=== PATIENT | male | born 1970 | race American Indian/Alaskan Native ===

== ENCOUNTER 2017-10-23 18:48 | Emergency (ER) | payer OTHER ==
[~2017-10-23] VITALS: Ht 177.8 cm; Wt 104.3 kg
[~2017-10-23 18:48] MED LIST: IBUP800 PO; Percocet 5-3251 EACH PO
[2017-10-23] MEDS ORDERED: Percocet 5-3251 EACH PO (20:40)
[2017-10-23] MEDS ORDERED: Crutch1 EACH MISC (20:44)
== END 2017-10-23 20:50 | disposition home or self-care (01) ==
LOC: ER 18:48
DX: S86.112A Strain of other muscle(s) and tendon(s) of posterior muscle group at lower leg level, left leg, initial encounter (principal); X58.XXXA Exposure to other specified factors, initial encounter; F17.200 Nicotine dependence, unspecified, uncomplicated
CPT/HCPCS: 29515; 76882; 99284

== ENCOUNTER 2018-10-10 21:40 | Emergency (ER) | payer OTHER ==
[~2018-10-10] VITALS: Ht 177.8 cm; Wt 104.3 kg
[~2018-10-10 21:40] MED LIST changes: +Crutch1 EACH MISC
== END 2018-10-11 02:11 | disposition home or self-care (01) ==
LOC: ER 21:40
DX: S30.0XXA Contusion of lower back and pelvis, initial encounter (principal); X50.9XXA Other and unspecified overexertion or strenuous movements or postures, initial encounter; F17.200 Nicotine dependence, unspecified, uncomplicated
CPT/HCPCS: 72100; 96372; 99283-25; J1170; J1885

== ENCOUNTER 2021-11-26 01:24 | Emergency (ER) | payer SELFPAY ==
[~2021-11-26] VITALS: Ht 177.8 cm; Wt 95.2 kg
[2021-11-26 01:54] LABS: BASOPHILS ABSOLUTE AUTO 0.05 K/mm3 (0.00-0.23); BASOPHILS PERCENT AUTO 1 % (0-2); EOSINOPHILS ABSOLUTE AUTO 0.14 K/mm3 (0.00-0.68); EOSINOPHILS PERCENT AUTO 1 % (0-6); Hematocrit 38.9 % (37.0-53.0); Hemoglobin 12.6 g/dL (13.5-17.5); IMMATURE GRAN ABSOLUTE AUTO 0.09 K/mm3 (0.00-0.10); IMMATURE GRAN PERCENT AUTO 1 % (0-1); LYMPHOCYTES ABSOLUTE AUTO 1.56 K/mm3 (0.84-5.20); LYMPHOCYTES PERCENT AUTO 15 % (21-46); MONOCYTES ABSOLUTE AUTO 0.42 K/mm3 (0.16-1.47); MONOCYTES PERCENT AUTO 4 % (4-13); Mean Corpuscular HGB 30.7 pg (26.0-34.0); Mean Corpuscular HGB Conc 32.4 g/dL (31.5-36.5); Mean Corpuscular Volume 95 fL (80-100); Mean Platelet Volume 9.5 fL (9.1-12.4); NEUTROPHILS ABSOLUTE AUTO 8.05 K/mm3 (1.96-9.15); NEUTROPHILS PERCENT AUTO 78 % (41-73); Platelet Count 289 K/mm3 (150-400); RDW Coefficient Variation 13.1 % (11.7-14.2); RDW Standard Deviation 45.8 fL (35.1-46.3); White Blood Cell Count 10.31 K/mm3 (4.00-11.30)
[2021-11-26 02:01] LABS: Alanine Aminotransfer (ALT/SGP 28 U/L (12-78); Albumin, Blood 3.6 g/dL (3.4-5.0); Alk Phos 99 U/L (50-136); Anion Gap 4 mmol/L (6-16); Aspartate Aminotrans (AST/SGOT 14 U/L (12-37); Bilirubin, Total 0.3 mg/dL (0.1-1.0); Blood Urea Nitrogen 14 mg/dL (8-24); Bun/Creatinine Ratio 16.3 (12.0-20.0); CO2, Blood 30 mmol/L (21-32); Calcium, Blood 8.4 mg/dL (8.5-10.1); Chloride, Blood 111 mmol/L (98-108); Creatinine, Blood 0.86 mg/dL (0.60-1.20); Ethanol (Alcohol), Blood, Med <3 mg/dL; Globulin, Blood 3.7 g/dL (2.2-4.0); Glomerular Filtration Rate >60 (60-); Glucose, Blood 123 mg/dL (70-99); Potassium, Blood 3.8 mmol/L (3.5-5.5); Sodium, Blood 145 mmol/L (136-145); Total Protein, Blood 7.3 g/dL (6.4-8.2)
[2021-11-26 04:23] LABS: Source, Urine Clean Catch
[2021-11-26 04:26] LABS: Bilirubin, Urine Neg (Neg); Blood, Urine 1+ (Neg); Glucose Qualitative, Urine Neg (Neg); Ketones, Urine Neg (Neg); Leukocyte Esterase, Urine Neg (Neg); Nitrite, Urine Neg (Neg); Protein, Urine Neg (Neg); Urobilinogen, Urine NORM (Normal)
[2021-11-26 04:31] LABS: Appearance, Urine Clear (Clear); Color, Urine Yellow (P-Yellow)
[2021-11-26 04:42] LABS: U Amphetamine Screen DETECTED; U Barbituate Screen Not Detected; U Benzodiazapine Screen Not Detected; U Buprenorphine Screen Not Detected; U Cannabinoids Screen Not Detected; U Cocaine Screen Not Detected; U Methadone Screen Not Detected; U Methamphetamine Screen DETECTED; U Opiates Screen DETECTED; U Oxycodone Screen Not Detected; U Phencyclidine Screen Not Detected; U Propoxyphene Screen Not Detected
[2021-11-26 04:45] LABS: Bacteria Not Seen /hpf; Red Blood Cells, Urine 0-2 /hpf (0-2); Squamous Epithelial Cells Few /hpf (Few); White Blood Cells, Urine Rare /hpf (0-5)
[2021-11-26] MEDS ORDERED: Roxicodone5 MG PO (07:07)
[2021-11-26] MEDS ORDERED: IBUP400 PO (14:28)
[2021-11-26] MEDS ORDERED: ACET500 PO (14:28)
[2021-11-26] MEDS ORDERED: OXYC5 PO (14:28)
== END 2021-11-26 15:00 | disposition home or self-care (01) ==
LOC: ER 01:24
PROVIDERS: Emergency Medicine
DX: S52.502A Unspecified fracture of the lower end of left radius, initial encounter for closed fracture (principal); S42.031A Displaced fracture of lateral end of right clavicle, initial encounter for closed fracture; V29.9XXA Motorcycle rider (driver) (passenger) injured in unspecified traffic accident, initial encounter; F17.200 Nicotine dependence, unspecified, uncomplicated
CPT/HCPCS: 25605; 29105; 70450; 71045; 71260; 72125; 73030; 73080; 73100; 73110; 74177; 76000; 80053; 81001; 83690; 85025; 93005; 93010; 96374; 96375; 96376; 99285-25; G0480; J1170; J1885; J2704; J7030; Q9967

== ENCOUNTER 2024-09-07 07:12 | Emergency (ER) | payer OTHER ==
[~2024-09-07] VITALS: Ht 177.8 cm; Wt 108.9 kg
[~2024-09-07 07:12] MED LIST changes: +ACET500 PO; +IBUP400 PO; +OXYC5 PO; +Roxicodone5 MG PO
[2024-09-07 08:42] VITALS: BP 174/94
[2024-09-07] MEDS ORDERED: CLIN300 PO (08:48)
== END 2024-09-07 09:32 | disposition home or self-care (01) ==
LOC: ER 07:12
DX: L02.415 Cutaneous abscess of right lower limb (principal); Z79.1 Long term (current) use of non-steroidal anti-inflammatories (NSAID); Z59.89 Other problems related to housing and economic circumstances
CPT/HCPCS: 99282

== ENCOUNTER 2024-09-10 20:23 | Inpatient (IN) | payer OTHER ==
[~2024-09-10] VITALS: Ht 177.8 cm; Wt 113.4 kg
[~2024-09-10 20:23] MED LIST changes: +CLIN300 PO
[2024-09-10 20:46] LABS: BASOPHILS ABSOLUTE AUTO 0.06 K/mm3 (0.00-0.23); BASOPHILS PERCENT AUTO 1 % (0-2); EOSINOPHILS PERCENT AUTO 1 % (0-6); Hematocrit 23.4 % (37.0-53.0); Hemoglobin 8.2 g/dL (13.5-17.5); IMMATURE GRAN ABSOLUTE AUTO 0.23 K/mm3 (0.00-0.10); IMMATURE GRAN PERCENT AUTO 2 % (0-1); LYMPHOCYTES ABSOLUTE AUTO 3.11 K/mm3 (0.84-5.20); LYMPHOCYTES PERCENT AUTO 26 % (21-46); MONOCYTES ABSOLUTE AUTO 0.55 K/mm3 (0.16-1.47); MONOCYTES PERCENT AUTO 5 % (4-13); Mean Corpuscular HGB 32.2 pg (26.0-34.0); Mean Corpuscular Volume 92 fL (80-100); Mean Platelet Volume 8.8 fL (9.1-12.4); NEUTROPHILS ABSOLUTE AUTO 7.95 K/mm3 (1.96-9.15); NEUTROPHILS PERCENT AUTO 66 % (41-73); Platelet Count 449 K/mm3 (150-400); RDW Standard Deviation 42.9 fL (35.1-46.3); Red Blood Cell Count 2.55 M/mm3 (4.30-5.90)
[2024-09-10 21:08] LABS: Albumin, Blood 2.8 g/dL (3.4-5.0); Albumin/Globulin Ratio 0.8 (0.8-1.8); Bilirubin, Total 0.1 mg/dL (0.1-1.0); Bun/Creatinine Ratio 46.4 (12.0-20.0); Creatinine, Blood 0.65 mg/dL (0.60-1.20); Globulin, Blood 3.5 g/dL (2.2-4.0); Potassium, Blood 4.1 mmol/L (3.5-5.5); Total Protein, Blood 6.3 g/dL (6.4-8.2)
[2024-09-11] VITALS (7 sets, daily range): BP systolic 103–131; BP diastolic 55–68
[2024-09-11] MEDS ORDERED: NS 1,000 ML IV SCH (01:30)
[2024-09-11] MEDS ORDERED: Clindamycin 600mg in D5W 50 ML IV ONE (02:10)
[2024-09-11 02:14] LABS: Hemoglobin 7.3 g/dL (13.5-17.5)
[2024-09-11] MEDS ORDERED: NS 1,000 ML IV ONE (02:20)
[2024-09-11] MEDS ORDERED: FLU VACC TS2024-25(6MOS UP)/PF 45 MCG/0.5 ML SYRINGE IM ONE (02:20)
[2024-09-11] MEDS ORDERED: Ondansetron HCl 2 MG / ML 2ML Vial IV PRN (02:20)
[2024-09-11] MEDS ORDERED: Pantoprazole Sodium 40 MG in NS 50 ML IV SCH (02:30)
[2024-09-11 03:15] LABS: International Normalized Ratio 0.99; Prothrombin Time Results 10.6 Sec (9.7-11.5)
[2024-09-11] MEDS ORDERED: CeFAZolin Sodium 1,000 MG in NS 50 ML IV SCH ×2 (04:25→20:00)
[2024-09-11 05:22] LABS: BASOPHILS ABSOLUTE AUTO 0.05 K/mm3 (0.00-0.23); BASOPHILS PERCENT AUTO 1 % (0-2); EOSINOPHILS ABSOLUTE AUTO 0.08 K/mm3 (0.00-0.68); EOSINOPHILS PERCENT AUTO 1 % (0-6); Hemoglobin 7.3 g/dL (13.5-17.5); IMMATURE GRAN ABSOLUTE AUTO 0.26 K/mm3 (0.00-0.10); IMMATURE GRAN PERCENT AUTO 2 % (0-1); LYMPHOCYTES ABSOLUTE AUTO 2.65 K/mm3 (0.84-5.20); LYMPHOCYTES PERCENT AUTO 24 % (21-46); MONOCYTES ABSOLUTE AUTO 0.53 K/mm3 (0.16-1.47); MONOCYTES PERCENT AUTO 5 % (4-13); Mean Corpuscular HGB Conc 34.8 g/dL (31.5-36.5); Mean Corpuscular Volume 92 fL (80-100); Mean Platelet Volume 8.8 fL (9.1-12.4); NEUTROPHILS ABSOLUTE AUTO 7.44 K/mm3 (1.96-9.15); NEUTROPHILS PERCENT AUTO 68 % (41-73); Platelet Count 381 K/mm3 (150-400); RDW Coefficient Variation 13.3 % (11.7-14.2); RDW Standard Deviation 43.5 fL (35.1-46.3); Red Blood Cell Count 2.28 M/mm3 (4.30-5.90); White Blood Cell Count 11.01 K/mm3 (4.00-11.30)
[2024-09-11 05:45] LABS: Albumin, Blood 2.6 g/dL (3.4-5.0); Albumin/Globulin Ratio 0.8 (0.8-1.8); Bilirubin, Total 0.2 mg/dL (0.1-1.0); Calcium, Blood 7.9 mg/dL (8.5-10.1); Creatinine, Blood 0.65 mg/dL (0.60-1.20); Globulin, Blood 3.3 g/dL (2.2-4.0); Potassium, Blood 4.2 mmol/L (3.5-5.5); Total Protein, Blood 5.9 g/dL (6.4-8.2)
[2024-09-11 13:16] LABS: IMMATURE RETIC FRACTION 38.1 % (2.3-16.0); RETIC HGB EQUIVALENT 36.9 pg (28.20-36.60); RETICULOCYTE ABSOLUTE 0.0682 M/mm3 (0.0200-0.1100); RETICULOCYTE COUNT PERCENT 2.98 % (0.50-2.50)
[2024-09-11 14:16] LABS: Hematocrit 20.3 % (37.0-53.0); Hemoglobin 6.8 g/dL (13.5-17.5)
[2024-09-11] MEDS ORDERED: Peg/Electrolytes 4,000 ML BTL PO ONE (14:20)
[2024-09-11 14:21] LABS: Percent Saturation 42.4 % (20.0-50.0)
[2024-09-11] MEDS ORDERED: NS 250 ML IV PRN (15:45)
[2024-09-11] MEDS ORDERED: Pantoprazole Sodium 40 MG Injection IV SCH (16:30)
[2024-09-11] MEDS ORDERED: ATOR40TA PO (16:32)
[2024-09-11] MEDS ORDERED: ERGO50000 PO (16:33)
[2024-09-11] MEDS ORDERED: GABA100 PO (16:33)
[2024-09-11] MEDS ORDERED: OMEP20ER PO (16:33)
[2024-09-11] MEDS ORDERED: Prinivil10 MG PO (16:33)
[2024-09-11] MEDS ORDERED: IBUP800 PO (16:34)
--- NOTE | 2024-09-11 17:49 | NUR ---
PT ADMITTED FROM THE ER FOR MELENA, PT ALERT AND ORIENTED, ABLE TO TRANSFER SELF FROM THE GURNEY TO THE BED, PT ORIENTED TO THE ROOM AND CALL SYSTEM, PT DENIES ANY PAIN OR SOB, BOWEL PREP STARTED, DR MINER WAS IN TO SEE THE PT AND HE WILL BE GETTING UPPER AND LOWER SCOPES TOMORROW, PT IS GETTING ONE UNIT OF PRBC'S AT THIS TIME, WILL CONT TO MONITOR
--- NOTE | 2024-09-11 19:20 | NUR ---
RECEIVED REPORT FROM BEAR RN. PT LYING IN BED WITH EYES CLOSED. RESP E/U ON RA. UNIT OF PRBC'S INFUSING WITHOUT DIFFICULTY. PT REQUESTING TYLENOL FOR RASHID. WILL CALL FOR ORDER. NO OTHER NEEDS AT THIS TIME. WILL CONTINUE TO PROVIDE CARE T/O SHIFT. CALL LT IN REACH.
[2024-09-11] MEDS ORDERED: Acetaminophen 500 MG Tab PO PRN (19:50)
[2024-09-11 21:10] LABS: Hematocrit 20.5 % (37.0-53.0); Hemoglobin 6.9 g/dL (13.5-17.5)
--- NOTE | 2024-09-11 21:50 | NUR ---
PT UP SITTING ON SIDE OF BED DRINKING THE GOLYTELY BOWEL PREP. MEDICATED PT WITH 4MG IV ZOFRAN FOR NAUSEA, PT STATES THE TASTE OF THE BOWEL PREP MAKES HIM NAUSEOUS. ENCOURAGED PT TO CONTINUES TO DRINK THE PREP. CALL LT IN REACH.
--- NOTE | 2024-09-11 22:17 | NUR ---
ENCOURAGED PT TO DRINK MORE OF BOWEL PREP. CALL LT IN REACH.
[2024-09-12] VITALS (11 sets, daily range): BP systolic 108–129; BP diastolic 54–95
--- NOTE | 2024-09-12 00:20 | NUR ---
PT CONTINUES TO DRINK THE BOWEL PREP. NOTED BLACK LIQUID STOOLS. CALL LT IN REACH.
--- NOTE | 2024-09-12 00:30 | NUR ---
NOTIFIED HOSPITALIST PT'S HEMOGLOBIN 6.9 AFTER 1 UNIT PRBC AND PT HAS HAD TWO BLACK LIQUID STOOLS SINCE BLOOD INFUSION. WILL NOTIFY HOSPITALIST AFTER NEXT H&H CHECK AT 5AM. PT NOT COMPLAINING OF DIZZINESS WHEN UP TO THE BATHROOM. WILL CONTINUE TO PROVIDE CARE. CALL LT IN REACH.
--- NOTE | 2024-09-12 02:05 | NUR ---
PT DECLINING LAST PART OF GOLYTELY, STATES HIS BOTTOM IS GETTING SORE. PT IS RESTING AT TIME. WILL CONTINUE TO ENCOURAGE PT TO FINISH HIS BOWEL PREP. CALL LT IN REACH.
--- NOTE | 2024-09-12 03:52 | NUR ---
SHIFT SUMMARY: A/O X 4. STATES NEEDS APPROPRIATELY. NO COMPLAINTS OF DIZZINESS. UP TO THE BATHROOM INDEP THROUGH SHIFT. STILL TRYING TO FINISH THE BOWEL PREP. HAD TWO LIQUID, BLACK STOOLS. RECEIVED 1 UNIT PRBC YESTERDAY FOR HGB OF 6.8, LAB DRAW RESULT AFTER BLOOD INFUSION HGB 6.9. HOSPITALIST NOTIFIED OF RESULTS AND OF THE DARK LIQUID STOOLS, PER , AWAIT FOR MORNING LAB RESULTS. PLAN IS FOR A LOWER SCOPE TODAY. SR AT 89 WITH BBB ON TELE. NO ACUTE CHANGES. WILL CONTINUE TO PROVIDE CARE UNTIL SHIFT REPORT TO ONCOMING NURSE. CALL LT IN REACH.
--- NOTE | 2024-09-12 03:52 | NUR ---
PT ENCOURAGED TO FINISH GOLYTELY, SITTING ON SIDE OF BED DRINKING BOWEL PREP. CALL LT IN REACH.
[2024-09-12 06:17] LABS: BASOPHILS ABSOLUTE AUTO 0.03 K/mm3 (0.00-0.23); BASOPHILS PERCENT AUTO 0 % (0-2); EOSINOPHILS ABSOLUTE AUTO 0.09 K/mm3 (0.00-0.68); EOSINOPHILS PERCENT AUTO 1 % (0-6); Hematocrit 19.5 % (37.0-53.0); Hemoglobin 6.6 g/dL (13.5-17.5); IMMATURE GRAN ABSOLUTE AUTO 0.12 K/mm3 (0.00-0.10); IMMATURE GRAN PERCENT AUTO 2 % (0-1); LYMPHOCYTES ABSOLUTE AUTO 1.98 K/mm3 (0.84-5.20); LYMPHOCYTES PERCENT AUTO 25 % (21-46); MONOCYTES ABSOLUTE AUTO 0.46 K/mm3 (0.16-1.47); MONOCYTES PERCENT AUTO 6 % (4-13); Mean Corpuscular HGB Conc 33.8 g/dL (31.5-36.5); Mean Corpuscular Volume 92 fL (80-100); Mean Platelet Volume 8.8 fL (9.1-12.4); NEUTROPHILS ABSOLUTE AUTO 5.14 K/mm3 (1.96-9.15); NEUTROPHILS PERCENT AUTO 66 % (41-73); Platelet Count 348 K/mm3 (150-400); RDW Coefficient Variation 13.7 % (11.7-14.2); Red Blood Cell Count 2.13 M/mm3 (4.30-5.90); White Blood Cell Count 7.82 K/mm3 (4.00-11.30)
[2024-09-12 06:58] LABS: Bun/Creatinine Ratio 14.4 (12.0-20.0); Calcium, Blood 7.3 mg/dL (8.5-10.1); Creatinine, Blood 0.63 mg/dL (0.60-1.20); Potassium, Blood 3.8 mmol/L (3.5-5.5)
[2024-09-12 08:31] LABS: Hematocrit 20.3 % (37.0-53.0); Hemoglobin 6.9 g/dL (13.5-17.5)
[2024-09-12] MEDS ORDERED: Acetaminophen 500 MG Tab PO PRN (08:40)
[2024-09-12 08:52] LABS: International Normalized Ratio 1.03
[2024-09-12] MEDS ORDERED: propofoL 50 ML IV ONE (10:51)
[2024-09-12] MEDS ORDERED: Lactated Ringer's 1,000 ML IV SCH (11:00)
[2024-09-12] MEDS ORDERED: Lidocaine HCl 4% 5 ML SDA ONE (11:06)
[2024-09-12] MEDS ORDERED: Phenylephrine HCl 100 MCG/ML-NS 10MLSYR (1MG/10ML) ONE (13:13)
[2024-09-12 14:48] LABS: Hematocrit 23.1 % (37.0-53.0)
[2024-09-12] MEDS ORDERED: ATOR40TA PO (17:05)
[2024-09-12] MEDS ORDERED: Vitamin D1000 UNI1 PO (17:05)
[2024-09-12] MEDS ORDERED: GABA100 PO (17:06)
[2024-09-12] MEDS ORDERED: OMEP20ER PO (17:06)
[2024-09-12] MEDS ORDERED: Prinivil10 MG PO (17:06)
--- NOTE | 2024-09-12 17:58 | NUR ---
PT DISCHARGED AT APPROX 1715. PT PIVS REMOVED AND PT EDUCATED ON NEED TO FOLLOW UP WITH PCP AND TAKE MEDS PRESCRIBED. PT HAD NO QUESTIONS OR CONCERNS AT TIME OF DISCAHRGE.
== END 2024-09-12 17:14 | disposition hospice, home (50) | DRG 394 ==
LOC: ER 20:23 → ERHOLD 20:24 → MEDS 09-11 13:14
PROVIDERS: Emergency Medicine; Hospitalist; Student in an Organized Health Care Education/Training Program; Surgery; ADMIT Internal Medicine
PROC: 0DBN8ZZ Excision of Sigmoid Colon, Via Natural or Artificial Opening Endoscopic (ICD-10-PCS; principal; 2024-09-12 13:00)
PROC: 0DJ08ZZ Inspection of Upper Intestinal Tract, Via Natural or Artificial Opening Endoscopic (ICD-10-PCS; 2024-09-12 13:00)
DX: K63.5 Polyp of colon (principal); K92.1 Melena; L03.115 Cellulitis of right lower limb; F17.210 Nicotine dependence, cigarettes, uncomplicated; E66.9 Obesity, unspecified; Z68.35 Body mass index [BMI] 35.0-35.9, adult; E86.0 Dehydration; D64.9 Anemia, unspecified
CPT/HCPCS: 36415; 36430; 76882; 80048; 80053; 82272; 82607; 82728; 82746; 83540; 83550; 83880; 85014; 85018; 85025; 85045; 85610; 85730; 86850; 86900; 86901; 86923; 88305; 93005; 93010; 93971; 96361; 96365; 96366; 96367; 96368; 96376; 99285-25; A9270; G0378; J0690; J2003; J2371; J2405; J2470; J2704; J7030; J7120; P9016

== ENCOUNTER 2024-10-12 11:30 | Emergency (ER) | payer OTHER ==
[~2024-10-12] VITALS: Ht 167.6 cm; Wt 113.4 kg
[~2024-10-12 11:30] MED LIST changes: +ATOR40TA PO; +ERGO50000 PO; +GABA100 PO; +OMEP20ER PO; +Prinivil10 MG PO; +Vitamin D1000 UNI1 PO
[2024-10-12 11:41] VITALS: BP 142/84
[2024-10-12 12:13] LABS: BASOPHILS ABSOLUTE AUTO 0.04 K/mm3 (0.00-0.23); BASOPHILS PERCENT AUTO 1 % (0-2); EOSINOPHILS ABSOLUTE AUTO 0.03 K/mm3 (0.00-0.68); EOSINOPHILS PERCENT AUTO 1 % (0-6); Hematocrit 32.4 % (37.0-53.0); Hemoglobin 11.1 g/dL (13.5-17.5); IMMATURE GRAN ABSOLUTE AUTO 0.02 K/mm3 (0.00-0.10); IMMATURE GRAN PERCENT AUTO 0 % (0-1); LYMPHOCYTES ABSOLUTE AUTO 0.72 K/mm3 (0.84-5.20); LYMPHOCYTES PERCENT AUTO 11 % (21-46); MONOCYTES ABSOLUTE AUTO 0.52 K/mm3 (0.16-1.47); MONOCYTES PERCENT AUTO 8 % (4-13); Mean Corpuscular HGB 30.4 pg (26.0-34.0); Mean Corpuscular HGB Conc 34.3 g/dL (31.5-36.5); Mean Corpuscular Volume 89 fL (80-100); Mean Platelet Volume 8.4 fL (9.1-12.4); NEUTROPHILS ABSOLUTE AUTO 5.02 K/mm3 (1.96-9.15); NEUTROPHILS PERCENT AUTO 79 % (41-73); Platelet Count 441 K/mm3 (150-400); RDW Standard Deviation 42.3 fL (35.1-46.3); Red Blood Cell Count 3.65 M/mm3 (4.30-5.90); White Blood Cell Count 6.35 K/mm3 (4.00-11.30)
[2024-10-12 12:34] LABS: Albumin/Globulin Ratio 1.1 (0.8-1.8); Bilirubin, Total 0.8 mg/dL (0.1-1.0); Bun/Creatinine Ratio 6.6 (12.0-20.0); Calcium, Blood 9.3 mg/dL (8.5-10.1); Creatinine, Blood 0.6 mg/dL (0.60-1.20); Globulin, Blood 3.6 g/dL (2.2-4.0); Total Protein, Blood 7.6 g/dL (6.4-8.2)
== END 2024-10-12 14:25 | disposition home or self-care (01) ==
LOC: ER 11:30
PROVIDERS: Emergency Medicine
DX: R07.89 Other chest pain (principal); E87.1 Hypo-osmolality and hyponatremia; F41.9 Anxiety disorder, unspecified; Z87.891 Personal history of nicotine dependence; Z79.899 Other long term (current) drug therapy; Z79.891 Long term (current) use of opiate analgesic; Z79.1 Long term (current) use of non-steroidal anti-inflammatories (NSAID)
CPT/HCPCS: 71046; 80053; 83690; 83880; 84484; 85025; 93005; 93010; 99285-25

== ENCOUNTER 2025-01-19 11:16 | Emergency (ER) | payer OTHER ==
[~2025-01-19] VITALS: Ht 177.8 cm; Wt 108.9 kg
[2025-01-19] MEDS ORDERED: Ibuprofen 400 MG Tab PO ONE (15:40)
[2025-01-19] MEDS ORDERED: HYDROcodone 5-APAP 325 TAB PO ONE (15:45)
[2025-01-19] MEDS ORDERED: HYDROCODONE-AC1 EA10 PO (16:03)
[2025-01-19] MEDS ORDERED: IBUP800 PO (16:03)
[2025-01-19 16:38] VITALS: BP 129/80
[2025-01-30] MEDS ORDERED: ALBU90OI INH (08:33)
[2025-01-30] MEDS ORDERED: DOCU100 PO (08:34)
[2025-01-30] MEDS ORDERED: Atarax10 MG PO (08:35)
== END 2025-01-19 17:00 | disposition home or self-care (01) ==
LOC: ER 11:16
DX: S92.002A Unspecified fracture of left calcaneus, initial encounter for closed fracture (principal); S00.81XA Abrasion of other part of head, initial encounter; E78.5 Hyperlipidemia, unspecified; I10 Essential (primary) hypertension; K21.9 Gastro-esophageal reflux disease without esophagitis; F17.210 Nicotine dependence, cigarettes, uncomplicated; Z79.899 Other long term (current) drug therapy; W11.XXXA Fall on and from ladder, initial encounter
CPT/HCPCS: 29515; 70450; 72100; 73610; 73630; 73700; 93005; 93010; 99285-25; A9270

== ENCOUNTER 2025-04-20 21:24 | Emergency (ER) | payer OTHER ==
[~2025-04-20] VITALS: Ht 177.8 cm; Wt 104.3 kg
[~2025-04-20 21:24] MED LIST changes: +ALBU90OI INH; +Atarax10 MG PO; +DOCU100 PO; +HYDROCODONE-AC1 EA10 PO
[2025-04-20 22:04] VITALS: BP 183/110
== END 2025-04-20 23:25 | disposition left against medical advice (07) ==
LOC: ER 21:24
DX: M79.89 Other specified soft tissue disorders (principal); Z53.29 Procedure and treatment not carried out because of patient's decision for other reasons
CPT/HCPCS: 93971; 99282-25